=== PATIENT | female | born 1995 | race Caucasian/White ===

== ENCOUNTER 2017-02-08 18:00 | Emergency (ER) ==
[2017-02-08 18:07] VITALS: BP 117/74; TEMP 98.7; BMI 23.4
--- NOTE | 2017-02-08 18:43 | ED.PDOC ---
General Stated Complaint: C/O bilateral temporal headache pain. Started having intermittent nose bleeds "a couple of days ago". Blurred vision and photophobia. Never had a headache like this.Presents to the ED with c/o headache like she has never had and nosebleeds that started a few days ago.[End] [ End ]98.7 78 16 98% 117/74 610 ES Tylenol, Motrin Time Seen by Physician: 18:41 Mode of Arrival: Walk-In Information Source: Patient Exam Limitations: No limitations Nursing and Triage Documentation Reviewed and Agree: No <VLADISLAV NEWMAN JR - Last Filed: 02/08/17 18:59> <SANKET MAYNARD - Last Filed: 02/08/17 19:43> ED Provider: Dr. SANKTE MAYNARD Chief Complaint: Headache Review of Systems - Review Of Systems Constitutional: Reports: Malaise Eyes: Reports: No symptoms, Photophobia (onexam) Ears, Nose, Mouth, Throat: Reports: Epistaxis Respiratory: Reports: No symptoms Cardiac: Reports: No symptoms GI: Reports: No symptoms : Reports: No symptoms Musculoskeletal: Reports: No symptoms Skin: Reports: No symptoms Neurological: Reports: Headache (anterior apex of scalp) Endocrine: Reports: No symptoms Hematologic/Lymphatic: Reports: No symptoms All Other Systems: Other <VLADISLAV NEWMAN JR - Last Filed: 02/08/17 18:59> Past Medical History - Past Medical History Previously Healthy: Yes Endocrine: Reports: None Cardiovascular: Reports: None Respiratory: Reports: None Hematological: Reports: None Gastrointestinal: Reports: None Genitourinary: Reports: None Neuro/Psych: Reports: None Musculoskeletal: Reports: None Cancer: Reports: None Last Menstrual Period: 01/25/2017 - Surgical History General Surgical History: Reports: None - Family History Family History: Reports: None - Social History Smoking Status: Never smoker Hx Substance Use: No Alcohol Screening: Occasionally - Immunizations Tetanus Shot up to Date: Yes <VLADISLAV NEWMAN JR - Last Filed: 02/08/17 18:59> Physical Exam - Physical Exam Appearance: Well-appearing, Thin Ill-appearing: Moderate Pain Distress: Moderate Eyes: DOUGLAS, EOMI, Conjunctiva clear ENT: Ears normal, Oropharynx normal, Erythema (right nare nonfocal) Neck: Supple Respiratory: Airway patent, Breath sounds clear, Breath sounds equal, Respirations nonlabored Cardiovascular: RRR, Pulses normal, No rub, No murmur GI/: Soft, Nontender, No masses, Bowel sounds normal, No Organomegaly Musculoskeletal: Normal strength, ROM intact, No edema, No calf tenderness Skin: Warm, Dry, Normal color Neurological: Sensation intact, Motor intact, Reflexes intact, Cranial nerves intact, Alert, Oriented Psychiatric: Affect appropriate, Mood appropriate <VLADISLAV NEWMAN JR - Last Filed: 02/08/17 18:59> Re-Evaluation - Re-Evaluation Time of Re-Evaluation: 19:41 Status: Improved Vital Signs Stable: Yes Pain Level: 1 Appearance: NAD Lungs: Clear Skin: Warm and Dry Neuro: Alert and Oriented X3 CV: RRR <CAESARSANKET - Last Filed: 02/08/17 19:43> Physician Notification - Case Discussed Endorsed To/Discussed With: DR RIBERA Time of Discussion: 18:59 <VLADISLAV NEWMAN JR - Last Filed: 02/08/17 18:59> Critical Care Note - Critical Care Note Total Time (mins): 0 <VLADISLAV NEWMAN JR - Last Filed: 02/08/17 18:59> Departure <VLADISLAV NEWMAN JR - Last Filed: 02/08/17 18:59> - Departure Time of Disposition: 19:41 Pt referred to PMD for follow-up: Yes Transfer Form Completed: No Disposition Discussed With: Patient <SANKET MAYNARD - Last Filed: 02/08/17 19:43> - Departure Disposition: HOME SELF-CARE Discharge Problem: Headache Sinusitis Qualifiers: Sinusitis location: unspecified location Chronicity: acute Recurrence: not specified as recurrent Qualifier Code: (J01.90) Acute sinusitis, unspecified Instructions: Sinusitis (ED) Condition: Good Additional Instructions: augmentin 875mg bid x 10 days--flonase nasal spray one puff each nostril bid-- [facility] Allergies/Adverse Reactions: Allergies maitake mushroom Adverse Reaction (Verified 02/08/17 18:25) sulfamethoxazole [From Bactrim] Adverse Reaction (Verified 02/08/17 18:25) trimethoprim [From Bactrim] Adverse Reaction (Verified 02/08/17 18:25) mushrooms Adverse Reaction (Uncoded 02/08/17 18:25) Home Medications: Ambulatory Orders 1 [No Reported Medications] 11/24/13
[2017-02-08 18:52] LABS: URINE PREGNANCY INTERNAL QC INTERNAL QC VALID
[2017-02-08] MEDS ORDERED: NORCO 5-325 PO STA (18:53)
[2017-02-08] MEDS ORDERED: NORFLEX IM STA (19:10)
[2017-02-08] MEDS ORDERED: TORADOL IM STA (19:10)
--- NOTE | 2017-02-08 19:16 | CT ---
EXAM: CT brain without contrast HISTORY: Headache, facial pain, epistaxis TECHNIQUE: Multi-slice transaxial helical with coronal and sagital reformated images COMPARISON: None FINDINGS: The midline structures are central. The ventricles are neither dilated nor displaced. T he brain attenuation with its campoverde-white matter interface is normal. No acute intraparenchymal or ex traaxial hemorrhagic collections are detected. The calvarium is intact. Scattered left ethmoid air cells are opacified. There is inspissated frot hy debris in the sphenoid sinus dependently. The other imaged portions of the sinuses and mastoid a ir cells are clear. IMPRESSION: No acute intracranial process. Left maxillary sinus and sphenoid sinus disease.
--- NOTE | 2017-02-08 19:24 | CT ---
EXAM: CT sinuses without contrast HISTORY: Epistaxis, headache, facial pain TECHNIQUE: Multi-slice transaxial helical with coronal and sagittal reformed images FINDINGS: No acute facial fractures are appreciated. There is chronic sinusoidal deviation of the n windy septum. A leftward corrected nasal septal spur contacts the left inferior nasal turbinate. Th e left ostiomeatal unit is completely opacified with thickened mucous membranes. There is mild muco us thickening in the maxillary sinus. The frontal sinus is small. There is inspissated frothy debr is along with mucous membrane thickening in the sphenoid sinus. There is minimal inspissated frothy debris in the left maxillary sinus. The mandibular condyles are seated in the glenoid fossa. The mastoid air cells and middle ears are clear. IMPRESSION: 1. Paranasal sinus disease with inspissated debris within the maxillary and sphenoid sinuses. 2. No acute fractures. 3. Chronic sinusoidal deviation of the nasal septum leftward corrected nasal septal spur contacting the left inferior nasal turbinate. 4. Compromised left ostiomeatal unit secondary to thickened mucous limits.
== END 2017-02-08 19:50 | disposition home or self-care (01) ==
LOC: ED 18:00
DX: J01.90 Acute sinusitis, unspecified (principal)
CPT/HCPCS: 81025; 96372; 99283

== ENCOUNTER 2017-04-11 13:47 | Emergency (ER) ==
[2017-04-11 13:53] VITALS: BP 109/66; TEMP 97.3; BMI 24.1
--- NOTE | 2017-04-11 14:45 | ED.PDOC ---
General ED Provider: Dr. MANUELTIO VALDES Chief Complaint: Wrist Pain/Injury Stated Complaint: states has been moving and then when she went back to work yesterday she has to lift a lot of stuff and made it worse. has pain to left wrist Time Seen by Physician: 14:40 Mode of Arrival: Walk-In Information Source: Patient Exam Limitations: No limitations Nursing and Triage Documentation Reviewed and Agree: Yes Musculoskeletal Complaint Exam - Upper Extremity Complaint/Exam Location of Pain: Reports: Left, Wrist Mechanism of Injury: Reports: Other (probably from lifting at work. ) Onset/Duration: 2 days Symptoms Are: Still present Timing: Constant Initial Severity: Mild Current Severity: Moderate Location: Reports: Diffuse, Discrete Character: Reports: Aching, Throbbing Aggravating: Reports: Movement, Extension, Internal rotation Alleviating: Reports: Rest Related History: Reports: Occupational injury, Dominant hand right. Denies: Similar episode, Dominant hand left, Immobility Non-Orthopedic Risk Factors: Reports: None DVT Risk Factors: Reports: None Septic Arthritis Risk Factors: Reports: None Related Surgical History: Reports: None Upper Extremity Findings: Present: Tenderness, Limited range of motion NV Bundle Intact Distal to Injury: No Compartment Syndrome Risk Factors: Present: Pain. Absent: Paralysis, Pallor, Pulselessness, Paresthesias Upper Extremity Picture: 1 - pain and tenderness Differential Diagnoses: Strain, Sprain Review of Systems - Review Of Systems Constitutional: Reports: No symptoms Eyes: Reports: No symptoms Ears, Nose, Mouth, Throat: Reports: No symptoms Respiratory: Reports: No symptoms Cardiac: Reports: No symptoms GI: Reports: No symptoms : Reports: No symptoms Musculoskeletal: Reports: Joint pain Skin: Reports: No symptoms Neurological: Reports: No symptoms Endocrine: Reports: No symptoms Hematologic/Lymphatic: Reports: No symptoms All Other Systems: Reviewed and Negative Past Medical History - Past Medical History Previously Healthy: Yes Endocrine: Reports: None Cardiovascular: Reports: None Respiratory: Reports: None Hematological: Reports: None Gastrointestinal: Reports: None Genitourinary: Reports: None Neuro/Psych: Reports: None Musculoskeletal: Reports: None Cancer: Reports: None Last Menstrual Period: romel 2 - Surgical History General Surgical History: Reports: None - Family History Family History: Reports: None - Social History Smoking Status: Never smoker Hx Substance Use: No Alcohol Screening: Occasionally Physical Exam - Physical Exam Appearance: Well-appearing, Well-nourished Pain Distress: Mild Eyes: DOUGLAS, EOMI, Conjunctiva clear ENT: Ears normal, Nose normal, Oropharynx normal Respiratory: Airway patent, Breath sounds clear, Breath sounds equal, Respirations nonlabored Cardiovascular: RRR, Pulses normal, No rub, No murmur GI/: Soft, Nontender, No masses, Bowel sounds normal, No Organomegaly Musculoskeletal: Normal strength, No edema, No calf tenderness, Limited ROM Skin: Warm, Dry, Normal color Neurological: Sensation intact, Motor intact, Reflexes intact, Cranial nerves intact, Alert, Oriented Psychiatric: Affect appropriate, Mood appropriate Interpretation - Radiology Interpretation Radiology Interpretation By: ED Physician Radiology Results: Negative Exam Interpreted: Other (left wrist x ray ) Critical Care Note - Critical Care Note Total Time (mins): 0 Course - Course Orders, Labs, Meds: Orders Category Date Time Status Splint [ED SPLINT APPLICATION] .ONCE EMERGENCY 04/11/17 14:55 Active WRIST, LEFT 3 VIEWS Stat RADS 04/11/17 14:40 Taken Vital Signs: Temp Pulse Resp BP Pulse Ox 04/11/17 13:47 97.3 F L 81 18 109/66 98 Departure - Departure Time of Disposition: 14:57 Disposition: HOME SELF-CARE Discharge Problem: Left wrist sprain Instructions: Wrist Sprain (ED) Condition: Stable Pt referred to PMD for follow-up: Yes Additional Instructions: Use splint for at least 48 hours Follow up with PCP if worse Take pain medications a prescribed. off work for 2 days Prescriptions: Ibuprofen [Motrin] 600 mg PO Q6H PRN #20 tablet PRN Reason: Analgesia Allergies/Adverse Reactions: Allergies maitake mushroom Adverse Reaction (Verified 02/08/17 18:25) Penicillins Adverse Reaction (Verified 04/11/17 13:52) sulfamethoxazole [From Bactrim] Adverse Reaction (Verified 02/08/17 18:25) trimethoprim [From Bactrim] Adverse Reaction (Verified 02/08/17 18:25) mushrooms Adverse Reaction (Uncoded 02/08/17 18:25) Home Medications: Ambulatory Orders Ibuprofen [Motrin] 600 mg PO Q6H PRN #20 tablet 04/11/17 Disposition Discussed With: Patient
[2017-04-11] MEDS ORDERED: MOTRIN PO STA (14:55)
--- NOTE | 2017-04-11 17:49 | DI ---
EXAM: Three views of the left wrist. History: Left wrist pain. Findings: No acute fracture or dislocation. No abnormal calcifications or radiopaque foreign berhane s. Joint spaces are preserved. Impression: Unremarkable exam.
== END 2017-04-11 15:16 | disposition home or self-care (01) ==
LOC: ED 13:47
DX: S63.502A Unspecified sprain of left wrist, initial encounter (principal); X50.1XXA Overexertion from prolonged static or awkward postures, initial encounter
CPT/HCPCS: 99282

== ENCOUNTER 2017-04-30 17:56 | Emergency (ER) ==
[2017-04-30 18:04] VITALS: BP 119/78; TEMP 97.2; BMI 24.5
--- NOTE | 2017-04-30 18:25 | ED.PDOC ---
General Stated Complaint: hand wrist pain left Time Seen by Physician: 18:00 Mode of Arrival: Walk-In Information Source: Patient Exam Limitations: No limitations Nursing and Triage Documentation Reviewed and Agree: Yes <JULIO ANDRADE Last Filed: 04/30/17 18:23> Stated Complaint: She states she injured it two weeks ago and had pain on the wrist Has been using a wrsit brace. Has not taking anything for pain since she ran out of [employer] <MANUELITO VALDES - Last Filed: 04/30/17 18:50> ED Provider: Dr. MANUELITO VALDES Chief Complaint: Wrist Pain/Injury Musculoskeletal Complaint Exam - Hand/Wrist Complaint/Exam Location of Pain: Reports: Right, Hand, Wrist Mechanism of Injury: Reports: Trauma Onset/Duration: 2 week not improved Symptoms Are: Still present Onset of Pain: Reports: Hours Initial Severity: Moderate Current Severity: Moderate Location: Reports: Discrete Character: Reports: Aching Alleviating: Reports: Rest Aggravating: Reports: Movement Associated Signs and Symptoms: Denies: Swelling, Redness, Bruising, Fever, Weakness, Numbness, Tingling Related History: Reports: Similar episode Dominant Hand: Right Related Surgical History: Reports: None Differential Diagnoses: Closed Fracture, Sprain, Strain <JULIO ANDRADE Last Filed: 04/30/17 18:23> Review of Systems - Review Of Systems Constitutional: Reports: No symptoms Eyes: Reports: No symptoms Ears, Nose, Mouth, Throat: Reports: No symptoms Respiratory: Reports: No symptoms Cardiac: Reports: No symptoms GI: Reports: No symptoms : Reports: No symptoms Musculoskeletal: Reports: Joint pain Skin: Reports: No symptoms Neurological: Reports: No symptoms Endocrine: Reports: No symptoms Hematologic/Lymphatic: Reports: No symptoms All Other Systems: Reviewed and Negative <JULIO ANDRADE Last Filed: 04/30/17 18:23> Past Medical History - Past Medical History Previously Healthy: Yes Endocrine: Reports: None Cardiovascular: Reports: None Respiratory: Reports: None Hematological: Reports: None Gastrointestinal: Reports: None Genitourinary: Reports: None Neuro/Psych: Reports: None Musculoskeletal: Reports: None Cancer: Reports: None Last Menstrual Period: 05/11 - Surgical History General Surgical History: Reports: None - Family History Family History: Reports: None - Social History Smoking Status: Never smoker Hx Substance Use: No Alcohol Screening: Occasionally - Immunizations Tetanus Shot up to Date: Yes <GUYLUIS ARMANDOJULIO Jimenez Last Filed: 04/30/17 18:23> Physical Exam - Physical Exam Appearance: Well-appearing, No pain distress, Well-nourished Eyes: DOUGLAS, EOMI, Conjunctiva clear ENT: Ears normal, Nose normal, Oropharynx normal Respiratory: Airway patent, Breath sounds clear, Breath sounds equal, Respirations nonlabored Cardiovascular: RRR, Pulses normal, No rub, No murmur GI/: Soft, Nontender, No masses, Bowel sounds normal, No Organomegaly Musculoskeletal: Normal strength, ROM intact, No edema, No calf tenderness Skin: Warm, Dry, Normal color Neurological: Sensation intact, Motor intact, Reflexes intact, Cranial nerves intact, Alert, Oriented Psychiatric: Affect appropriate, Mood appropriate <RAYMONDJULIO Jimenez Last Filed: 04/30/17 18:23> Interpretation - Radiology Interpretation Radiology Interpretation By: Radiologist Radiology Results: Negative Exam Interpreted: Other (Wrist pain. ) <MANUELITO VALDES Barbara Last Filed: 04/30/17 18:50> Physician Notification - Case Discussed Physician Notified: [email or web address] Time of Notification: 18:25 <RAYMONDJULIO Jimenez Last Filed: 04/30/17 18:23> Critical Care Note - Critical Care Note Total Time (mins): 0 <RAYMONDJULIO Muñoz Filed: 04/30/17 18:23> Departure <RAYMONDJULIO Muñoz Filed: 04/30/17 18:23> - Departure Time of Disposition: 18:43 Pt referred to PMD for follow-up: Yes Disposition Discussed With: Patient <MANUELITO VALDES Barbara Last Filed: 04/30/17 18:50> - Departure Disposition: HOME SELF-CARE Discharge Problem: Right wrist sprain Qualifiers: Encounter type: initial encounter Qualifier Code: (S63.501A) Unspecified sprain of right wrist, initial encounter Instructions: Wrist Sprain (ED) Condition: Stable Additional Instructions: Continue to use the wrist splint you have at home Follow up with PCP in 3 days. Take mediations as prescribed. Prescriptions: Ibuprofen [Motrin] 600 mg PO Q6H PRN #30 tablet PRN Reason: Analgesia Allergies/Adverse Reactions: Allergies maitake mushroom Adverse Reaction (Verified 02/08/17 18:25) Penicillins Adverse Reaction (Verified 04/11/17 13:52) sulfamethoxazole [From Bactrim] Adverse Reaction (Verified 02/08/17 18:25) trimethoprim [From Bactrim] Adverse Reaction (Verified 02/08/17 18:25) mushrooms Adverse Reaction (Uncoded 02/08/17 18:25) Home Medications: Ambulatory Orders Ibuprofen [Motrin] 600 mg PO Q6H PRN #20 tablet 04/11/17 Ibuprofen [Motrin] 600 mg PO Q6H PRN #30 tablet 04/30/17
[2017-04-30] MEDS ORDERED: MOTRIN PO STA (18:40)
--- NOTE | 2017-04-30 19:17 | DI ---
EXAM:Four view left wrist COMPARISON: Left hand series from same day and left wrist series from 04/11/2017 HISTORY: Trauma and pain FINDINGS: Examination is unchanged. There is no acute fracture or dislocation. Alignment is anato inessa. Joint spaces are well preserved. There is no significant degenerative change. Soft tissues are unremarkable. No unexpected radio-opaque foreign bodies. IMPRESSION: 1. No acute osseous abnormality identified. If symptoms persist would recommend consideration for CT or MRI to further evaluate.
--- NOTE | 2017-04-30 19:18 | DI ---
EXAM:Three-view left hand COMPARISON: Left wrist from same day and left wrist from 04/11/2017 HISTORY: Trauma and pain FINDINGS: There is no acute fracture or dislocation. Alignment is anatomic. Joint spaces are well preserved. There is no significant degenerative change. Soft tissues are unremarkable. No unexpecte d radio-opaque foreign bodies. IMPRESSION: 1. Negative exam as described. If clinical symptoms continue to persist would recommend a CT or MR I to further evaluate.
== END 2017-04-30 19:24 | disposition home or self-care (01) ==
LOC: ED 17:56
DX: S63.502A Unspecified sprain of left wrist, initial encounter (principal)
CPT/HCPCS: 99283